=== PATIENT | male | born 1990 | race Caucasian/White ===

== ENCOUNTER 2016-07-21 08:49 | Emergency (ER) | payer SELFPAY ==
[2016-07-21] MEDS ORDERED: IBUPROFEN 800 MG TABLET PO ONE (09:26)
[2016-07-21] MEDS ORDERED: HYDROCODONE/ACETAMINOPHEN 5-325 MG TABLET PO ONE (09:26)
--- NOTE | 2016-07-21 09:29 | ER Document Report ---
HPI - HPI Patient complains to provider of: joint pain Onset: Other - 3 weeks ago Onset/Duration: Waxing and waning Quality of pain: Achy Pain Level: 4 Context: Patient states that about 3 weeks ago he had left shoulder pain that moved to the right shoulder, then involved both shoulders, then resolved after 4 days. Patient states that yesterday he started to develop hip pain and right ankle pain. Patient states today he woke up with left third finger and left wrist pain. Patient complains of continued ankle and hip pain but denies any shoulder pain at this time. Patient denies any fever, recent illness or injury. Patient denies any IV drug use. Associated Symptoms: Other - Joint pain. denies: Fever, Leg swelling Exacerbated by: Movement Relieved by: Denies Similar symptoms previously: No Recently seen / treated by doctor: No - ROS ROS below otherwise negative: Yes Systems Reviewed and Negative: Yes All other systems reviewed and negative - CONSTITUTIONAL Constitutional: DENIES: Fever, Chills - EENT EENT: DENIES: Sore Throat - NEURO Neurology: DENIES: Headache, Weakness - CARDIOVASCULAR Cardiovascular: DENIES: Chest pain - RESPIRATORY Respiratory: DENIES: Trouble Breathing, Coughing - GASTROINTESTINAL Gastrointestinal: DENIES: Nausea, Patient vomiting - MUSCULOSKELETAL Musculoskeletal: REPORTS: Extremity pain - Hip pain, right ankle pain, le, Swelling. DENIES: Back Pain - DERM Skin Color: Normal Skin Problems: None Past Medical History - General Information source: Patient - Social History Smoking Status: Current Every Day Smoker Frequency of alcohol use: Occasional Drug Abuse: None Occupation: [id number] Family History: Reviewed & Not Pertinent - Medical History Medical History: Negative Renal/ Medical History: Denies: Hx Peritoneal Dialysis Musculoskeltal Medical History: Denies Hx Arthritis Surgical Hx: Negative Vertical Provider Document - CONSTITUTIONAL Agree With Documented VS: Yes Exam Limitations: No Limitations General Appearance: WD/WN, No Apparent Distress - HEENT HEENT: Atraumatic, Normal ENT Exam, Normocephalic - NECK Neck: Normal Inspection, Supple. negative: Lymphadenopathy-Left, Lymphadenopathy-Right - RESPIRATORY Respiratory: Breath Sounds Normal, No Respiratory Distress, Chest Non-Tender O2 Sat by Pulse Oximetry: 100 - CARDIOVASCULAR Cardiovascular: Regular Rate, Regular Rhythm, No Murmur Pulses: Normal: Radial, Posterior tibial - BACK Back: Normal Inspection - MUSCULOSKELETAL/EXTREMETIES Musculoskeletal/Extremeties: JOSEE, FROM, Tender - Tenderness anterior aspect of right ankle, bilateral hips, left wrist, and volar aspect of left third finger, Edema - Trace edema to left wrist and anterior right ankle Notes: Left wrist and right ankle warm to touch, normal skin color overlying joints - NEURO Level of Consciousness: Awake, Alert, Appropriate Motor/Sensory: No Motor Deficit - DERM Integumentary: Warm, Dry Course - Re-evaluation Re-evalutation: 07/21/16 09:[address] keys regarding patient presentation, diagnostic evaluation and management. Advises ordering ALICIA, rheumatoid factor, CRP, sedimentation rate and outpatient follow-up with primary doctor - Vital Signs Vital signs: Temp Pulse Resp BP Pulse Ox 98.7 F 86 15 125/88 H 100 07/21/16 08:50 07/21/16 08:50 07/21/16 08:50 07/21/16 08:50 07/21/16 08:50 - Laboratory Result Diagrams: 07/21/16 09:45 07/21/16 09:45 Laboratory results interpreted by me: 07/21/16 10:57 Labs- Entire Visit 07/21/16 07/21/16 07/21/16 09:45 09:45 09:45 WBC 10.2 RBC 4.52 Hgb 13.5 Hct 38.7 MCV 86 MCH 29.9 MCHC 34.9 RDW 12.7 Plt Count 299 Seg Neutrophils % 77.6 Lymphocytes % 11.8 L Monocytes % 8.8 Eosinophils % 1.2 Basophils % 0.6 Absolute Neutrophils 7.9 Absolute Lymphocytes 1.2 Absolute Monocytes 0.9 Absolute Eosinophils 0.1 Absolute Basophils 0.1 ESR 12 Sodium 140.5 Potassium 4.2 Chloride 104 Carbon Dioxide 26 Anion Gap 11 BUN 12 Creatinine 0.85 Est GFR ( Amer) > 60 Est GFR (Non-Af Amer) > 60 Glucose 102 Uric Acid 5.7 Calcium 9.7 Total Bilirubin 0.8 Direct Bilirubin 0.3 Indirect Bilirubin Not Reportable Neonat Total Bilirubin Not Reportable AST 19 ALT 29 Alkaline Phosphatase 59 C-Reactive Protein 8.2 Total Protein 7.1 Albumin 4.3 Rheumatoid Factor NEGATIVE Discharge - Discharge Clinical Impression: polyarticular joint pain Condition: Stable Disposition: HOME, SELF-CARE Instructions: Arthralgia ([facility]), Anti-Inflammatory Medication ([facility]) Additional Instructions: Return immediately for any new or worsening symptoms Followup with your primary care provider, call tomorrow to make a followup appointment You'll need further evaluation on an outpatient basis to determine the cause of your joint pain, call tomorrow for an appointment Prescriptions: Hydrocodone/Acetaminophen [[place] 5-325 Tablet] 1 each PO Q4 PRN #12 tablet PRN Reason: Naproxen [Naprosyn 250 Nmg Tablet] 1 tab PO BID #14 tablet Forms: Return to Work Referrals: [facility] [Provider Group] - Follow up as needed [facility] [Provider Group] - Follow up tomorrow
[2016-07-21 10:11] LABS: ABSOLUTE BASOPHILS # (AUTO) 0.1 10^3/uL (0.0-0.2); ABSOLUTE EOSINOPHILS # (AUTO) 0.1 10^3/uL (0.0-0.6); ABSOLUTE LYMPHOCYTES (AUTO) 1.2 10^3/uL (0.5-4.7); ABSOLUTE MONOCYTES (AUTO) 0.9 10^3/uL (0.1-1.4); ABSOLUTE NEUT (AUTO) 7.9 10^3/uL (1.7-8.2); BASOPHILS % (AUTO) 0.6 % (0-2); EOSINOPHILS % (AUTO) 1.2 % (0-6); HEMATOCRIT 38.7 % (37.9-51.0); HEMOGLOBIN 13.5 g/dL (13.5-17.0); HGB HCT DIFFERENCE 1.8; LYMPHOCYTES % (AUTO) 11.8 % (13-45); MEAN CORPUSCULAR HEMOGLOBIN 29.9 pg (27.0-33.4); MEAN CORPUSCULAR HGB CONC 34.9 g/dL (32.0-36.0); MEAN CORPUSCULAR VOLUME 86 fl (80-97); MONOCYTES % (AUTO) 8.8 % (3-13); RED BLOOD COUNT 4.52 10^6/uL (4.35-5.55); RED CELL DISTRIBUTION WIDTH 12.7 % (11.5-14.0); SEGMENTED NEUTROPHILS % (AUTO) 77.6 % (42-78); WHITE BLOOD COUNT 10.2 10^3/uL (4.0-10.5)
[2016-07-21 10:34] LABS: ALANINE AMINOTRANSFERASE 29 U/L (21-72); ALBUMIN 4.3 g/dL (3.5-5.0); ALKALINE PHOSPHATASE 59 U/L (38-126); ANION GAP 11 (5-19); ASPARTATE AMINO TRANSFERASE 19 U/L (17-59); BILIRUBIN,DIRECT 0.3 mg/dL (0.0-0.4); BILIRUBIN,TOTAL 0.8 mg/dL (0.2-1.3); BLOOD UREA NITROGEN 12 mg/dL (7-20); C-REACTIVE PROTEIN 8.2 mg/L (<10.0); CALCIUM 9.7 mg/dL (8.4-10.2); CARBON DIOXIDE 26 mmol/L (22-30); CHLORIDE 104 mmol/L (98-107); CREATININE RESULT 0.85 mg/dL (0.52-1.25); GLUCOSE 102 mg/dL (75-110); POTASSIUM 4.2 mmol/L (3.6-5.0); SODIUM 140.5 mmol/L (137-145); TOTAL PROTEIN 7.1 g/dL (6.3-8.2); URIC ACID 5.7 mg/dL (3.5-8.5)
[2016-07-21 10:47] LABS: ERYTHROCYTE SEDIMENTATION RATE 12 mm/hr (0-15)
[2016-07-21 11:03] VITALS: BP 110/56
[2016-07-25 08:29] LABS: LYME DISEASE IGG AND IGM AB <0.91 ISR (0.00-0.90)
== END 2016-07-21 11:03 | disposition home or self-care (01) ==
LOC: ER 08:49
DX: M25.559 Pain in unspecified hip (principal); M25.571 Pain in right ankle and joints of right foot; M25.532 Pain in left wrist; M79.645 Pain in left finger(s); R60.9 Edema, unspecified; F17.200 Nicotine dependence, unspecified, uncomplicated
CPT/HCPCS: 36415; 80053; 84550; 85025; 85652; 86038; 86140; 86430; 86617; 86618; 99283